=== PATIENT | female | born 2000 | race Caucasian/White ===

== ENCOUNTER 2020-10-25 03:12 | Emergency (ER) | payer OTHER ==
[~2020-10-25 03:12] MED LIST: COLACE 100MG C100 MG PO; IBUPROFEN600 MG PO; LORTAB 5-325 M1 EACH PO; PHENERGAN 12.12.5 M1 PO; PREDNISONE 50 M50 MG PO; PRENATAL VITAM1 EAC8 PO; ZITHROMAX500 MG PO
== END 2020-10-25 05:30 | disposition left against medical advice (07) ==
LOC: ER1 03:12
DX: K08.89 Other specified disorders of teeth and supporting structures (principal); Z53.21 Procedure and treatment not carried out due to patient leaving prior to being seen by health care provider